=== PATIENT | female | born 2000 | race African-American/Black ===

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

== ENCOUNTER 2023-03-30 11:27 | Outpatient (CLI) | payer MEDICAID ==
--- NOTE | 2023-03-30 19:11 | Ultrasound Report ---
PROCEDURE: Pelvic w/Transvaginal INDICATIONS: SEVERE DYSMENORRHEA TECHNIQUE: Real-time scanning was performed of the pelvic organs, with image documentation. Additional endovagi nal scanning was necessary due to incomplete visualization of the adnexal and endometrial structures by transabdominal scanning. COMPARISON: None. FINDINGS: Uterus: Uterus is anteflexed. and normal in size at 2.6 x 4.1 x 4.9 cm. The myometrium is homogeneo us. The endometrium measures 14 mm in combined thickness. Ovaries: The right ovary measures 3.2 x 1.4 x 2.4 cm, with a calculated ovarian volume of 5.6 cc. T he left ovary measures 2.6 x 1.5 x 3.1 cm, with a calculated ovarian volume of 6.3 cc. The ovaries h ave a normal sonographic appearance. Less than 12 follicles can be seen in each ovary. No adnexal m asses are seen. No cystic lesions measuring greater than 3 cm. Other: No pathologic free abdominal or pelvic fluid. IMPRESSION: No findings to explain the patient's severe dysmenorrhea. Reviewed by: Tu Mejia MD on 03/30/2023 7:10 PM PST Approved by: Tu Mejia MD on 03/30/2023 7:10 PM PST Station ID: [id number]
== END 2023-03-30 11:28 | disposition home or self-care (01) ==
LOC: DI 11:27
PROVIDERS: ATTEND Nurse Practitioner
DX: N94.6 Dysmenorrhea, unspecified (principal)

== ENCOUNTER 2023-12-16 15:05 | Outpatient (CLI) | payer MEDICAID ==
[2023-12-16 19:07] LABS: BASOPHILS % (AUTO) 1.2 %; EOSINOPHILS # (AUTO) 0.3 10^3/uL (0.0-0.7); EOSINOPHILS % (AUTO) 8.2 %; HGB - HEMOGLOBIN 11.3 g/dL (12.0-16.0); LYMPHOCYTES # (AUTO) 1.5 10^3/uL (1.5-3.5); LYMPHOCYTES % (AUTO) 43.3 %; MEAN CORPUSCULAR HEMOGLOBIN 27.6 pg (27.0-31.0); MEAN CORPUSCULAR HGB CONC 31.4 g/dL (32.0-36.0); MEAN CORPUSCULAR VOLUME 87.8 fL (81.0-99.0); MEAN PLATELET VOLUME 12.3 fL (7.9-10.8); MONOCYTES # (AUTO) 0.3 10^3/uL (0.0-1.0); MONOCYTES % (AUTO) 9.9 %; NEUTROPHILS # (AUTO) 1.3 10^3/uL (1.5-6.6); NEUTROPHILS % (AUTO) 37.4 %; PLT - PLATELET COUNT 225 10^3/uL (130-450); RED CELL DISTRIBUTION WIDTH 12.5 % (12.0-15.0); WHITE BLOOD COUNT 3.4 x10^3/uL (4.8-10.8)
[2023-12-16 19:19] LABS: ALBUMIN 4.6 g/dL (3.2-5.5); ALBUMIN/GLOBULIN RATIO 1.9 (1.0-2.2); BILIRUBIN,TOTAL 0.2 mg/dL (0.2-1.0); CALCIUM 9.6 mg/dL (8.5-10.3); CREATININE 0.8 mg/dL (0.6-1.3); POTASSIUM 3.8 mmol/L (3.5-4.5)
[2023-12-16 19:28] LABS: THYROID STIMULATING HORMONE 0.43 uIU/mL (0.34-5.60)
== END 2023-12-16 15:06 | disposition home or self-care (01) ==
LOC: LAB.N 15:05
PROVIDERS: ATTEND Nurse Practitioner
DX: D64.9 Anemia, unspecified (principal); R53.83 Other fatigue
CPT/HCPCS: 36415; 80053; 82607; 84443; 85025